=== PATIENT | female | born 1980 | race Caucasian/White ===

== ENCOUNTER 2022-04-24 20:19 | Observation (INO) ==
[2022-04-24] MEDS ORDERED: *HR* HYDROmorphone (PF) 1 MG/ML SYRINGE IVP ONE (21:30)
[2022-04-24] MEDS ORDERED: Ondansetron 4 MG/2 ML VIAL IVP ONE (21:35)
[2022-04-24] MEDS ORDERED: Piperacillin/Tazobactam 3.375 GM in 0.9 % Sodium Chloride Mini Bag 100 ML IVPB ONE (21:53)
[2022-04-24] MEDS ORDERED: 0.9 % Sodium Chloride 1,000 ML IVC ONE (21:53)
[2022-04-24 22:12] LABS: Basophils # 0.1 K/mcL (0.0-0.2); Basophils % 0.3 %; Hematocrit 42.5 % (35.3-44.9); Hemoglobin 14.5 g/dL (11.5-15.4); Immature Granulocytes % 0.3 % (0-4); Lymphocytes # 0.6 K/mcL (0.6-4.6); Lymphocytes % 2.9 %; Mean Corpuscular HGB Conc 34.1 g/dL (31.6-35.5); Mean Corpuscular Hemoglobin 29.6 pg (28.0-33.3); Mean Corpuscular Volume 86.7 fL (83.0-100.0); Mean Platelet Volume 8.8 fL (9.4-12.4); Monocytes # 0.6 K/mcL (0.0-1.3); Monocytes % 3.3 %; Neutrophils # 17.7 K/mcL (1.6-8.9); Platelet Count 275 K/mcL (140-400); Red Cell Distribution Width 11.8 % (11.5-14.5); Segmented Neutrophils % 93.2 %; White Blood Count 19.1 K/mcL (4.3-11.1)
[2022-04-24] MEDS ORDERED: Naloxone 0.4 MG/ML INJ IVP PRN (22:23)
[2022-04-24] MEDS ORDERED: Ondansetron 4 MG/2 ML VIAL IVP PRN (22:23)
[2022-04-24] MEDS ORDERED: 0.9 % Sodium Chloride 1,000 ML IVC SCH (22:30)
[2022-04-24 22:36] LABS: Alanine Aminotransferase 16 Units/L (7-52); Albumin 4.6 g/dL (3.5-5.7); Albumin/Globulin Ratio 1.6 (1.1-2.2); Alkaline Phosphatase 61 Units/L (34-104); Amylase 37 Units/L (29-103); Aspartate Amino Transferase 17 Units/L (13-39); BUN/Creatinine Ratio 19 (6-26); Bilirubin,Direct 0.1 mg/dL (0.0-0.2); Bilirubin,Indirect 0.6 mg/dL (0.0-1.0); Bilirubin,Total 0.7 mg/dL (0.3-1.0); Blood Urea Nitrogen 12 mg/dL (6-20); Calcium 9.2 mg/dL (8.6-10.3); Carbon Dioxide 22 mEq/L (23-29); Chloride 99 mEq/L (98-107); Globulin 2.9 g/dL (2.4-3.5); Glucose 114 mg/dL (70-105); Lipase 9 Units/L (11-82); Osmolality,Calculated 273 (280-300); Potassium 3.8 mEq/L (3.5-5.1); Sodium 131 mEq/L (136-145); Total Protein 7.5 g/dL (6.4-8.9)
[2022-04-24] MEDS: Acetaminophen IV 1,000 MG/100 ML BAG IVPB SCH (23:13)
[2022-04-24] MEDS: 0.9 % Sodium Chloride 1,000 ML IVC SCH (23:14)
[2022-04-24 23:15] LABS: Bilirubin,Urine Negative (Negative); Blood,Urine Trace (Negative); Clarity,Urine Clear (Clear); Color,Urine Light-Yellow (Yellow); Glucose,Urine (UA) Normal (Normal); Ketones,Urine 20 mg/dL (Negative); Leukocyte Esterase,Urine Negative (Negative); Nitrite,Urine Negative (Negative); Protein,Urine 30 mg/dL (Neg-Trace); Specific Gravity,Urine 1.024 (1.010-1.025); Squamous Epithelial Cell,Urine Few per hpf (None-Few); Urobilinogen,Urine Normal (Normal); WBC,Urine 0-3 per hpf (0-3)
[2022-04-25] MEDS ORDERED: Piperacillin/Tazobactam 3.375 GM in 0.9 % Sodium Chloride Mini Bag 100 ML IVPB SCH
[2022-04-25] MEDS: Ondansetron 4 MG/2 ML VIAL IVP PRN ×2 (02:15→08:17)
[2022-04-25 03:06] LABS: Hematocrit 38.9 % (35.3-44.9); Hemoglobin 13.1 g/dL (11.5-15.4); Mean Corpuscular HGB Conc 33.7 g/dL (31.6-35.5); Mean Corpuscular Hemoglobin 29.6 pg (28.0-33.3); Mean Corpuscular Volume 87.8 fL (83.0-100.0); Mean Platelet Volume 8.8 fL (9.4-12.4); Platelet Count 260 K/mcL (140-400); Red Blood Count 4.43 M/mcL (3.82-4.97); Red Cell Distribution Width 11.9 % (11.5-14.5); White Blood Count 17.2 K/mcL (4.3-11.1)
[2022-04-25 03:12] LABS: INR 1.2
[2022-04-25 03:15] LABS: Activated Partial Thrombo Time 30.8 Seconds (26.0-36.0)
[2022-04-25 03:28] LABS: BUN/Creatinine Ratio 15 (6-26); Blood Urea Nitrogen 9 mg/dL (6-20); Calcium 8.8 mg/dL (8.6-10.3); Carbon Dioxide 22 mEq/L (23-29); Chloride 103 mEq/L (98-107); Glucose 108 mg/dL (70-105); Osmolality,Calculated 281 (280-300); Potassium 3.7 mEq/L (3.5-5.1); Sodium 136 mEq/L (136-145)
[2022-04-25] MEDS: Piperacillin/Tazobactam 3.375 GM in 0.9 % Sodium Chloride Mini Bag 100 ML IVPB SCH ×3 (05:49→21:48)
[2022-04-25] MEDS: Acetaminophen IV 1,000 MG/100 ML BAG IVPB SCH ×3 (07:17→18:12)
[2022-04-25] MEDS ORDERED: Scopolamine Patch 1.5 MG PATCH.TD72 ONE (08:39)
[2022-04-25] MEDS ORDERED: Acetaminophen IV 1,000 MG/100 ML BAG IVPB ONE (08:40)
[2022-04-25] MEDS ORDERED: *HR* FentaNYL (PF) 100 MCG/2 ML VIAL ONE (08:45)
[2022-04-25] MEDS ORDERED: Lidocaine -MPF 2% 2 ML VIAL ONE (08:45)
[2022-04-25] MEDS ORDERED: *HR* Succinylcholine 200 MG/10 ML VIAL IVP ONE (08:45)
[2022-04-25] MEDS ORDERED: *HR* Propofol 200 MG/20 ML VIAL IVP ONE (08:45)
[2022-04-25] MEDS ORDERED: Lidocaine HCL 4 ML Topical Solution (Laryng-O-Jet Kit Sterile Pak) TP ONE (08:45)
[2022-04-25] MEDS ORDERED: Ondansetron 4 MG/2 ML VIAL ONE (08:45)
[2022-04-25] MEDS ORDERED: *HR* Midazolam HCl 2 MG/2 ML VIAL ONE (08:45)
[2022-04-25] MEDS ORDERED: *HR* FentaNYL (PF) 100 MCG/2 ML VIAL IVP PRN ×2 (08:50→14:51)
[2022-04-25] MEDS ORDERED: Ketorolac 30 MG/ML VIAL ONE (09:46)
[2022-04-25] MEDS: 0.9 % Sodium Chloride 1,000 ML IVC SCH ×4 (12:17→21:46)
[2022-04-25] MEDS ORDERED: predniSONE 20 MG TABLET PO SCH (14:51)
[2022-04-25] MEDS ORDERED: Naloxone 0.4 MG/ML INJ IVP PRN (14:51)
[2022-04-25] MEDS ORDERED: Ondansetron 4 MG/2 ML VIAL IVP PRN (14:51)
[2022-04-25] MEDS ORDERED: *HR* OxyCODONE/APAP 5/325 TABLET PO PRN (14:51)
[2022-04-25] MEDS: Albuterol 2.5 MG/3 ML NEBULIZER IH SCH ×2 (15:31→21:24)
[2022-04-25] MEDS: Ketorolac 30 MG/ML VIAL IVP SCH ×2 (15:34→18:12)
[2022-04-25] MEDS: Benzonatate 100 MG CAPSULE PO SCH ×2 (15:40→20:06)
[2022-04-26] MEDS: Acetaminophen IV 1,000 MG/100 ML BAG IVPB SCH ×2 (00:11→06:13)
[2022-04-26] MEDS: Ketorolac 30 MG/ML VIAL IVP SCH ×2 (00:13→06:13)
[2022-04-26 00:43] VITALS: O2SAT 97
[2022-04-26 02:52] LABS: Basophils % 0.3 %; Eosinophils % 0.1 %; Hematocrit 32.7 % (35.3-44.9); Immature Granulocytes % 0.3 % (0-4); Lymphocytes # 1.2 K/mcL (0.6-4.6); Lymphocytes % 13.4 %; Mean Corpuscular Hemoglobin 29.4 pg (28.0-33.3); Mean Corpuscular Volume 89.1 fL (83.0-100.0); Mean Platelet Volume 8.8 fL (9.4-12.4); Monocytes # 0.7 K/mcL (0.0-1.3); Monocytes % 7.4 %; Neutrophils # 7.2 K/mcL (1.6-8.9); Platelet Count 225 K/mcL (140-400); Red Blood Count 3.67 M/mcL (3.82-4.97); Red Cell Distribution Width 12.3 % (11.5-14.5); Segmented Neutrophils % 78.5 %; White Blood Count 9.2 K/mcL (4.3-11.1)
[2022-04-26 02:56] LABS: Hemoglobin 10.8 g/dL (11.5-15.4)
[2022-04-26 03:01] LABS: BUN/Creatinine Ratio 13 (6-26); Blood Urea Nitrogen 9 mg/dL (6-20); Calcium 8.2 mg/dL (8.6-10.3); Carbon Dioxide 25 mEq/L (23-29); Chloride 110 mEq/L (98-107); Glucose 103 mg/dL (70-105); Osmolality,Calculated 289 (280-300); Potassium 3.5 mEq/L (3.5-5.1); Sodium 140 mEq/L (136-145)
[2022-04-26] MEDS: Albuterol 2.5 MG/3 ML NEBULIZER IH SCH (04:42)
[2022-04-26] MEDS: Piperacillin/Tazobactam 3.375 GM in 0.9 % Sodium Chloride Mini Bag 100 ML IVPB SCH (06:12)
[2022-04-26] MEDS: 0.9 % Sodium Chloride 1,000 ML IVC SCH (06:14)
[2022-04-26 07:10] VITALS: BP 114/67; PULSE 66; TEMP 98.2
[2022-04-26] MEDS: Benzonatate 100 MG CAPSULE PO SCH (08:26)
[2022-04-26] MEDS ORDERED: Ibuprofen 400 MG TABLET PO ONE (09:00)
[2022-04-26] MEDS ORDERED: Acetaminophen 325 MG TABLET PO SCH (12:00)
[2022-04-26] MEDS ORDERED: *HR* Enoxaparin 40 MG/0.4 ML SYRINGE SQ SCH ×2 (18:00)
== END 2022-04-26 10:09 | disposition home or self-care (01) ==
LOC: 2ANU 20:19 → EMEROOARM 20:19 → 2ANU 22:40
PROVIDERS: ADMIT Internal Medicine; ATTEND Internal Medicine